=== PATIENT | female | born 1950 | race African-American/Black ===

== ENCOUNTER 2018-11-16 09:03 | Emergency (ER) | payer MEDICARE, OTHER ==
[~2018-11-16] VITALS: Ht 157.5 cm; Wt 90.0 kg
[~2018-11-16 09:03] MED LIST: ALBU8.5H8 IH; ASPI81TA42 PO; BECL8.7A6 IH; FLUO-191 PO; GLIP5 PO; IBUP-2279 PO; LISI40TA4 PO; LOVA20 PO; MAG1TAB.8 PO; METF-960 PO; TRAZ-220 PO
[2018-11-16 09:20] LABS: GLUCOSE,POINT OF CARE 134 MG/DL (70-110)
[2018-11-16 11:11] LABS: INFLUENZA TYPE A NEGATIVE FOR TYPE A (NEGATIVE); INFLUENZA TYPE B NEGATIVE FOR TYPE B (NEGATIVE)
[2018-11-16] MEDS ORDERED: IPRATROPIUM BROMIDE 0.5 MG/2.5 ML NEB SOLUTION NEB ONE (12:00)
[2018-11-16] MEDS ORDERED: ALBUTEROL SULFATE 2.5 MG/0.5 ML NEB SOLUTION NEB ONE (12:00)
[2018-11-16] MEDS ORDERED: BENZONATATE 100 MG CAPSULE PO ONE (12:00)
[2018-11-16 12:15] VITALS: BP 132/78
== END 2018-11-16 12:22 | disposition home or self-care (01) ==
LOC: EMS 09:05
DX: J40 Bronchitis, not specified as acute or chronic (principal); I10 Essential (primary) hypertension; E78.00 Pure hypercholesterolemia, unspecified; E11.9 Type 2 diabetes mellitus without complications; Z79.82 Long term (current) use of aspirin; Z79.84 Long term (current) use of oral hypoglycemic drugs; Z79.899 Other long term (current) drug therapy
CPT/HCPCS: 87804; 94640

== ENCOUNTER 2019-06-13 10:48 | Emergency (ER) | payer MEDICARE, OTHER ==
[~2019-06-13] VITALS: Ht 157.5 cm; Wt 93.2 kg
[~2019-06-13 10:48] MED LIST changes: +ASPI81TA40 PO; -ASPI81TA42 PO
[2019-06-13] MEDS ORDERED: OMEP20 PO (11:31)
[2019-06-13] MEDS ORDERED: PARO20TA24 PO (11:31)
[2019-06-13] MEDS ORDERED: FERR-89 PO (11:31)
[2019-06-13] MEDS ORDERED: LISI-662 PO (11:38)
[2019-06-13] MEDS ORDERED: PRAZ2 PO (11:38)
[2019-06-13] MEDS ORDERED: FLUT110HFA IH (11:38)
[2019-06-13] MEDS ORDERED: BENZ-51 PO (11:38)
[2019-06-13] MEDS ORDERED: CHOL100018 PO (11:38)
[2019-06-13] MEDS ORDERED: SITA100 PO (11:38)
[2019-06-13] MEDS ORDERED: DIPH25 PO (11:38)
[2019-06-13] MEDS ORDERED: OS500 PO (11:38)
[2019-06-13 11:44] LABS: GLUCOSE,POINT OF CARE 141 MG/DL (70-110)
[2019-06-13 12:07] VITALS: BP 140/89
[2019-06-13] MEDS ORDERED: KETOROLAC TROMETHAMINE 30 MG/ML VIAL IM ONE (12:15)
== END 2019-06-13 12:36 | disposition home or self-care (01) ==
LOC: EMS 10:49
DX: M54.41 Lumbago with sciatica, right side (principal); E11.9 Type 2 diabetes mellitus without complications; E78.00 Pure hypercholesterolemia, unspecified; I10 Essential (primary) hypertension; Z79.84 Long term (current) use of oral hypoglycemic drugs; Z79.82 Long term (current) use of aspirin; Z79.899 Other long term (current) drug therapy
CPT/HCPCS: 82962; 96372; 99283; J1885

== ENCOUNTER 2019-10-25 12:08 | Emergency (ER) | payer MEDICARE, OTHER ==
[~2019-10-25] VITALS: Ht 154.9 cm; Wt 92.7 kg
[~2019-10-25 12:08] MED LIST changes: +BENZ-51 PO; +CHOL100018 PO; +DIPH25 PO; +FERR-89 PO; +FLUT110HFA IH; +LISI-662 PO; -LISI40TA4 PO; -MAG1TAB.8 PO; +OMEP20 PO; +OS500 PO; +PRAZ2 PO; +SITA100 PO; -TRAZ-220 PO
[2019-10-25 12:31] VITALS: BP 145/109
== END 2019-10-25 13:55 | disposition home or self-care (01) ==
LOC: EMS 12:08
DX: L03.312 Cellulitis of back [any part except buttock and flank] (principal); E11.9 Type 2 diabetes mellitus without complications; E78.00 Pure hypercholesterolemia, unspecified; I10 Essential (primary) hypertension; J45.909 Unspecified asthma, uncomplicated; Z79.899 Other long term (current) drug therapy; Z98.890 Other specified postprocedural states; Z79.84 Long term (current) use of oral hypoglycemic drugs
CPT/HCPCS: 87070; 87205

== ENCOUNTER 2019-10-31 08:29 | Emergency (ER) | payer MEDICARE, OTHER ==
[~2019-10-31] VITALS: Ht 154.9 cm; Wt 92.7 kg
[2019-10-31] MEDS ORDERED: CYCL10 PO (08:35)
[2019-10-31] MEDS ORDERED: ACETAMINOPHEN 500 MG TABLET PO ONE (09:00)
[2019-10-31] MEDS ORDERED: SODIUM CHLORIDE 0.9% 1,000 ML IV ONE ×2 (09:00→09:30)
[2019-10-31 09:08] LABS: BASOPHILS % (AUTO) 0.2 % (0.0-2.0); EOSINOPHILS % (AUTO) 4.3 % (1.0-6.0); HEMATOCRIT 40.6 % (36-46); HEMOGLOBIN 13.3 g/dL (12.0-16.0); LYMPHOCYTES # (AUTO) 1.4 K/uL (1.0-4.8); LYMPHOCYTES % (AUTO) 21.6 % (22.0-44.0); MEAN CORPUSCULAR HEMOGLOBIN 27.9 pg (26.0-34.0); MEAN CORPUSCULAR HGB CONC 32.7 G/dL (31.0-37.0); MEAN CORPUSCULAR VOLUME 85 fL (80-100); MONOCYTES # (AUTO) 0.8 K/uL (0.1-1.0); MONOCYTES % (AUTO) 12.4 % (2.0-9.0); NEUTROPHILS % (AUTO) 61.5 % (40.0-70.0); PLATELET COUNT (AUTO) 423 K/uL (150-450); RED BLOOD CELL COUNT(AUTO) 4.76 MIL/uL (4.00-5.20); RED CELL DISTRIBUTION WIDTH 14.7 % (11.5-14.5)
[2019-10-31 09:17] LABS: CALCIUM, TOTAL 9.9 mg/dL (8.8-10.5); CREATININE 1.31 mg/dL (0.60-1.30); POTASSIUM 4.2 mmol/L (3.5-5.1)
[2019-10-31 09:22] LABS: ALBUMIN 4.2 g/dL (3.4-5.0); BILIRUBIN,TOTAL 0.4 mg/dL (0.1-1.0); TOTAL PROTEIN, SERUM 8.1 g/dL (6.4-8.2)
[2019-10-31] MEDS ORDERED: BACITRACIN 0.9 GM PACKET OINTMENT TP ONE (09:30)
[2019-10-31] MEDS ORDERED: LIDOCAINE 1% 10 ML VIAL INJ ONE (09:30)
[2019-10-31 11:03] VITALS: BP 119/61
== END 2019-10-31 11:21 | disposition home or self-care (01) ==
LOC: EMS 08:31
DX: L02.212 Cutaneous abscess of back [any part, except buttock and flank] (principal); I10 Essential (primary) hypertension; E78.00 Pure hypercholesterolemia, unspecified; E11.9 Type 2 diabetes mellitus without complications; J45.909 Unspecified asthma, uncomplicated; Z79.82 Long term (current) use of aspirin; Z79.899 Other long term (current) drug therapy
CPT/HCPCS: 10060; 36415; 80053; 82962; 85025; 99284; J3490; J7030

== ENCOUNTER 2019-11-02 15:24 | Emergency (ER) | payer MEDICARE, OTHER ==
[~2019-11-02] VITALS: Ht 154.9 cm; Wt 91.8 kg
[~2019-11-02 15:24] MED LIST changes: +CYCL10 PO
[2019-11-02] MEDS ORDERED: ACETAMINOPHEN 500 MG TABLET PO ONE (15:45)
[2019-11-02 16:06] LABS: GLUCOSE,POINT OF CARE 270 MG/DL (70-110)
[2019-11-02 16:28] VITALS: BP 139/84
== END 2019-11-02 16:40 | disposition home or self-care (01) ==
LOC: EMS 15:24
DX: Z48.00 Encounter for change or removal of nonsurgical wound dressing (principal); E11.9 Type 2 diabetes mellitus without complications; I10 Essential (primary) hypertension; E78.00 Pure hypercholesterolemia, unspecified; J45.909 Unspecified asthma, uncomplicated; Z79.82 Long term (current) use of aspirin; Z79.84 Long term (current) use of oral hypoglycemic drugs; Z79.899 Other long term (current) drug therapy
CPT/HCPCS: 82948

== ENCOUNTER 2019-11-04 08:05 | Emergency (ER) | payer MEDICARE, OTHER ==
[~2019-11-04] VITALS: Ht 154.9 cm; Wt 91.8 kg
[2019-11-04] MEDS ORDERED: CARI350T26 PO (08:15)
[2019-11-04 09:38] VITALS: BP 133/82
== END 2019-11-04 09:44 | disposition home or self-care (01) ==
LOC: EMS 08:06
DX: Z48.00 Encounter for change or removal of nonsurgical wound dressing (principal); J45.909 Unspecified asthma, uncomplicated; E11.9 Type 2 diabetes mellitus without complications; E78.00 Pure hypercholesterolemia, unspecified; I10 Essential (primary) hypertension; Z79.82 Long term (current) use of aspirin; Z79.899 Other long term (current) drug therapy

== ENCOUNTER 2019-11-06 09:19 | Emergency (ER) | payer MEDICARE, OTHER ==
[~2019-11-06] VITALS: Ht 154.9 cm; Wt 90.9 kg
[~2019-11-06 09:19] MED LIST changes: -BENZ-51 PO; +CARI350T26 PO
[2019-11-06] MEDS ORDERED: INSU100V12 SQ (09:29)
[2019-11-06] MEDS ORDERED: ACET-66 PO (09:29)
[2019-11-06 10:15] VITALS: BP 162/76
== END 2019-11-06 10:24 | disposition home or self-care (01) ==
LOC: EMS 09:23
DX: Z48.00 Encounter for change or removal of nonsurgical wound dressing (principal); J45.909 Unspecified asthma, uncomplicated; E11.9 Type 2 diabetes mellitus without complications; E78.00 Pure hypercholesterolemia, unspecified; I10 Essential (primary) hypertension; Z79.4 Long term (current) use of insulin; Z79.84 Long term (current) use of oral hypoglycemic drugs

== ENCOUNTER 2019-11-08 10:38 | Emergency (ER) | payer MEDICARE, OTHER ==
[~2019-11-08] VITALS: Ht 167.6 cm; Wt 90.9 kg
[~2019-11-08 10:38] MED LIST changes: +ACET-66 PO; +INSU100V12 SQ
[2019-11-08 11:05] LABS: GLUCOSE,POINT OF CARE 224 MG/DL (70-110)
[2019-11-08] MEDS ORDERED: SODIUM CHLORIDE 0.9% 1,000 ML IV ONE (11:15)
[2019-11-08 14:10] VITALS: BP 106/73
== END 2019-11-08 14:15 | disposition home or self-care (01) ==
LOC: EMS 10:39
DX: E86.0 Dehydration (principal); I10 Essential (primary) hypertension; E78.00 Pure hypercholesterolemia, unspecified; E11.9 Type 2 diabetes mellitus without complications; J45.909 Unspecified asthma, uncomplicated; Z48.00 Encounter for change or removal of nonsurgical wound dressing; Z79.84 Long term (current) use of oral hypoglycemic drugs; Z79.899 Other long term (current) drug therapy
CPT/HCPCS: 82962; 96360; 96361; 99283; J7030

== ENCOUNTER 2020-05-01 08:52 | Emergency (ER) | payer MEDICARE, OTHER ==
[~2020-05-01] VITALS: Ht 157.5 cm; Wt 93.2 kg
[~2020-05-01 08:52] MED LIST changes: -LOVA20 PO; +LOVA20TA73 PO
[2020-05-01] MEDS ORDERED: LIDOCAINE 1%/EPI 1:200,000/PF 10 ML VIAL INJ ONE (10:15)
[2020-05-01] MEDS ORDERED: POVIDONE-IODINE 10% 15 ML SOLUTION UD TP ONE (10:15)
[2020-05-01 11:05] VITALS: BP 146/83
== END 2020-05-01 11:37 | disposition home or self-care (01) ==
LOC: EMS 08:56
DX: L03.313 Cellulitis of chest wall (principal); I10 Essential (primary) hypertension; E11.9 Type 2 diabetes mellitus without complications; E78.00 Pure hypercholesterolemia, unspecified; J45.909 Unspecified asthma, uncomplicated; Z79.82 Long term (current) use of aspirin; Z79.84 Long term (current) use of oral hypoglycemic drugs; Z79.899 Other long term (current) drug therapy
CPT/HCPCS: 10060; 82948; 99283; J3490

== ENCOUNTER 2020-05-03 13:34 | Emergency (ER) | payer MEDICARE, OTHER ==
[~2020-05-03] VITALS: Ht 165.1 cm; Wt 100.0 kg
[2020-05-03 15:11] VITALS: BP 122/74
== END 2020-05-03 15:32 | disposition home or self-care (01) ==
LOC: EMS 13:39
DX: N61.0 Mastitis without abscess (principal); J45.909 Unspecified asthma, uncomplicated; E11.9 Type 2 diabetes mellitus without complications; E78.00 Pure hypercholesterolemia, unspecified; I10 Essential (primary) hypertension; F32.9 Major depressive disorder, single episode, unspecified; Z48.00 Encounter for change or removal of nonsurgical wound dressing
CPT/HCPCS: Z7502